=== PATIENT | female | born 1945 | race Caucasian/White ===

== ENCOUNTER 2018-06-11 12:04 | Emergency (ER) | payer OTHER ==
[~2018-06-11] VITALS: Ht 162.6 cm; Wt 50.8 kg
[2018-06-11] MEDS ORDERED: NEURONTIN300 MG PO (12:59)
[2018-06-11] MEDS ORDERED: DICLOFENAC SOD100 MG PO (13:01)
== END 2018-06-11 16:35 | disposition home or self-care (01) ==
LOC: ER 12:04
DX: M54.5 Low back pain (principal)